=== PATIENT | male | born 1955 | race Caucasian/White ===

== ENCOUNTER 2017-05-06 14:43 | Inpatient (IN) | payer BC ==
[2017-05-06] VITALS (10 sets, daily range): BP systolic 110–156; BP diastolic 36–78
[~2017-05-06] VITALS: Ht 177.8 cm; Wt 101.7 kg
[~2017-05-06 14:43] MED LIST: 0.9 % SODIUM CHLORIDE 10 ML VIAL ONE; calcium chloride 100 MG/1 ML inj IV ONE; dextrose 50%-water 50ml dispensing syringe IV ONE; epiNEPHrine 0.1mg/ml 10ml syringe ONE; etomidate 2mg/ml inj. ONE; furosemide 10 MG/1 ML 10ml inj ONE; sodium bicarbonate (8.4%) 1 mEq/ml syringe ONE
[2017-05-06] MEDS ORDERED: fentaNYL/PF 50MCG/1 ML 2ML syringe ONE (14:50)
[2017-05-06] MEDS ORDERED: LIDOcaine 1%/PF (10mg/ml) 5ml vial ONE ×2 (14:50)
[2017-05-06] MEDS ORDERED: iohexol 350MG/ML 100ml bottle IV ONE ×2 (14:50→15:34)
[2017-05-06] MEDS ORDERED: midazolam 2 mg/2 ml injection ONE (14:50)
[2017-05-06] MEDS ORDERED: hydrALAZINE 20mg/ml inj. IV ONE (14:58)
[2017-05-06] MEDS ORDERED: dextrose 50%-water 50ml dispensing syringe IV ONE (15:00)
[2017-05-06] MEDS ORDERED: sodium polystyrene sulfonate 15gm/60ml oral suspension PO ONE (15:00)
[2017-05-06] MEDS ORDERED: furosemide 40mg/4ml inj IV ONE (15:00)
[2017-05-06] MEDS ORDERED: sodium bicarbonate (0.9mEq/ml) 44.6 mEq/50ml syringe IV ONE (15:00)
[2017-05-06] MEDS ORDERED: insulin regular, human 10 units/0.1 ml syringe IV ONE (15:00)
[2017-05-06] MEDS ORDERED: calcium chloride 100 MG/1 ML inj IV ONE (15:00)
[2017-05-06 15:05] LABS: BASOPHILS # (AUTO) 0.1 X10'3 (0-0.2); BASOPHILS % (AUTO) 0.9 % (0-1); EOSINOPHILS # (AUTO) 0.4 X10'3 (0-0.9); EOSINOPHILS % (AUTO) 3.9 % (0-6); HEMATOCRIT 35.9 % (42.0-52.0); HEMOGLOBIN 12.1 g/dl (14.0-17.9); LYMPHOCYTES # (AUTO) 2.7 X10'3 (1.1-4.8); LYMPHOCYTES % (AUTO) 26.8 % (21-51); MEAN CORPUSCULAR HEMOGLOBIN 31.6 PG (27.0-31.0); MEAN CORPUSCULAR HGB CONC 33.7 % (33.0-36.5); MEAN CORPUSCULAR VOLUME 93.9 FL (78-98); MEAN PLATELET VOLUME 10.8 FL (7.4-10.4); MONOCYTES # (AUTO) 0.8 X10'3 (0-0.9); MONOCYTES % (AUTO) 8.3 % (2-12); NEUTROPHILS % (AUTO) 60.1 % (42-75); PLATELET COUNT 145 X10'3 (140-440); RED BLOOD COUNT 3.82 X10'6 (4.70-6.10); RED CELL DISTRIBUTION WIDTH 14.9 % (11.5-14.5); WHITE BLOOD COUNT 9.9 X10'3 (4.5-11.0)
[2017-05-06 15:16] LABS: LARGE PLATELETS FEW; PLATELET ESTIMATE NORMAL
[2017-05-06 15:22] LABS: ALANINE AMINOTRANSFERASE 94 U/L (12-78); ALBUMIN 2.9 G/DL (3.4-5.0); ALKALINE PHOSPHATASE 90 IU/L (46-116); ANION GAP 13 (8-16); ASPARTATE AMINO TRANSFERASE 83 U/L (10-37); BILIRUBIN,TOTAL 0.3 MG/DL (0.1-1.0); BLOOD UREA NITROGEN 58 MG/DL (7-18); BUN/CREATININE RATIO 21.1 (5.4-32.0); CALCIUM 7.9 MG/DL (8.5-10.1); CHLORIDE 108 MMOL/L (99-107); CREATININE 2.75 MG/DL (0.60-1.10); GLUCOSE 304 MG/DL (70-104); SODIUM 140 MMOL/L (135-145); TOTAL CARBON DIOXIDE 19.1 MMOL/L (24-32); TOTAL PROTEIN 5.8 G/DL (6.4-8.2); eGFR 24 ML/MIN
[2017-05-06 15:23] LABS: POTASSIUM 5.2 MMOL/L (3.5-5.1)
[2017-05-06] MEDS ORDERED: DOPamine 400mg/D5W 250ml 250 ML IV ONE (15:27)
[2017-05-06] MEDS ORDERED: heparin 1,000unit/ml 10ml vial 10 ML ONE (15:41)
[2017-05-06] MEDS ORDERED: tirofiban 5mg in NS 100mL 100 ML IV ONE (15:44)
[2017-05-06] MEDS ORDERED: ticagrelor 90mg tablet ONE (16:16)
[2017-05-06] MEDS ORDERED: tirofiban 5mg in NS 100mL 100 ML IV SCH ×2 (16:30→17:45)
[2017-05-06 16:45] LABS: ABG BASE EXCESS -11.6 mmol/L (-2.0-3.0); ABG HCO3 12.9 mmol/L (22.0-26.0); ABG OXYGEN SATURATION 99.4 % (95-98); ABG PCO2 (T) 26.1 mmHg (35.0-48.0); ABG PH (T) 7.313 (7.350-7.450); ABG PO2 (T) 367.6 mmHg (83-108); FCOHb 0.2 % (0.5-1.5); FO2Hb 99.2 % (94-100); MINUTE VOLUME 11 L/min; PEEP 5 cm H2O; RESPIRATORY RATE 14 b/min; RESPIRATORY RATE (OBSERVED) 16 b/min; TIDAL VOLUME 600 mL; TOTAL HEMOGLOBIN 13.2 G/dl (14.0-18.0)
[2017-05-06] MEDS ORDERED: insulin Lispro (HumaLOG) vial - multi-dose SQ SCH (17:00)
[2017-05-06] MEDS ORDERED: dextrose ORAL solution 15 GM/59 ML bottle PO PRN ×2 (17:00)
[2017-05-06] MEDS ORDERED: ondansetron/PF 4mg/2ml inj IV PRN (17:00)
[2017-05-06] MEDS ORDERED: dextrose 50%-water 50ml dispensing syringe IV PRN ×2 (17:00)
[2017-05-06] MEDS ORDERED: MESSAGE TO PHARMACY PO ONE (17:00)
[2017-05-06] MEDS ORDERED: glucagon, human recombinant 1mg kit SUBCUT PRN (17:00)
[2017-05-06] MEDS ORDERED: fentaNYL/PF 50MCG/1 ML 2ML syringe IV PRN (17:00)
[2017-05-06] MEDS ORDERED: acetaminophen 325mg tablet PO PRN ×2 (17:00)
[2017-05-06] MEDS ORDERED: morphine 5 MG/ML injection IV PRN ×2 (17:00)
[2017-05-06] MEDS ORDERED: magnesium hydroxide 30ml (MOM) UD suspension PO PRN (17:00)
[2017-05-06] MEDS ORDERED: DOPamine 400mg/D5W 250ml 250 ML IV PRN (17:05)
[2017-05-06] MEDS ORDERED: HYDR-4069 PO (17:08)
[2017-05-06] MEDS ORDERED: ASPI-1094 PO (17:08)
[2017-05-06] MEDS ORDERED: FURO80TA3 PO (17:08)
[2017-05-06] MEDS ORDERED: CHOL4PAC4 PO (17:08)
[2017-05-06] MEDS ORDERED: DICY10CA88 PO (17:08)
[2017-05-06] MEDS ORDERED: FOLI1TAB34 PO (17:08)
[2017-05-06] MEDS ORDERED: CARV25TA PO (17:08)
[2017-05-06] MEDS ORDERED: GABA-532 PO (17:08)
[2017-05-06] MEDS ORDERED: aspirin 81mg tab.chew PO ONE (17:10)
[2017-05-06] MEDS ORDERED: ticagrelor 90mg tablet PO ONE (17:10)
[2017-05-06] MEDS: pantoprazole 40 MG vial IV SCH (18:12)
[2017-05-06] MEDS ORDERED: mineral oil/petrolatum ophthal oint EACHEYE SCH (18:24)
[2017-05-06] MEDS: mineral oil/petrolatum ophthal oint EACHEYE SCH ×2 (18:24→21:15)
[2017-05-06] MEDS: midazolam 100mg in NS 100ml 100 ML IV PRN (19:22)
[2017-05-06 19:25] LABS: ABG BASE EXCESS -12.6 mmol/L (-2.0-3.0); ABG HCO3 14.4 mmol/L (22.0-26.0); ABG OXYGEN SATURATION 93.6 % (95-98); ABG PCO2 (T) 31.7 mmHg (35.0-48.0); ABG PH (T) 7.256 (7.350-7.450); ABG PO2 (T) 60.6 mmHg (83-108); FCOHb 0.1 % (0.5-1.5); FO2Hb 93.5 % (94-100); MINUTE VOLUME 7 L/min; PATIENT TEMPERATURE 33.3; PEEP 5 cm H2O; RESPIRATORY RATE 14 b/min; RESPIRATORY RATE (OBSERVED) 14 b/min; TIDAL VOLUME 400 mL; TOTAL HEMOGLOBIN 12.9 G/dl (14.0-18.0)
[2017-05-06 19:30] LABS: OXYGEN SATURATION (MIXED VEN) 86.5 % (60-80); PO2 MIXED VENOUS (TEMP COR) 42.8 mmHg (35-46)
[2017-05-06 19:42] LABS: BASOPHILS % (AUTO) 0.1 % (0-1); EOSINOPHILS # (AUTO) 0.2 X10'3 (0-0.9); EOSINOPHILS % (AUTO) 1.1 % (0-6); HEMATOCRIT 36.4 % (42.0-52.0); HEMOGLOBIN 12.3 g/dl (14.0-17.9); LYMPHOCYTES # (AUTO) 0.5 X10'3 (1.1-4.8); LYMPHOCYTES % (AUTO) 3.3 % (21-51); MEAN CORPUSCULAR HEMOGLOBIN 31.8 PG (27.0-31.0); MEAN CORPUSCULAR HGB CONC 33.7 % (33.0-36.5); MEAN CORPUSCULAR VOLUME 94.4 FL (78-98); MEAN PLATELET VOLUME 10.4 FL (7.4-10.4); MONOCYTES # (AUTO) 1.9 X10'3 (0-0.9); MONOCYTES % (AUTO) 11.7 % (2-12); NEUTROPHILS # (AUTO) 13.9 X10'3 (1.8-7.7); NEUTROPHILS % (AUTO) 83.8 % (42-75); PLATELET COUNT 162 X10'3 (140-440); RED BLOOD COUNT 3.86 X10'6 (4.70-6.10); RED CELL DISTRIBUTION WIDTH 14.7 % (11.5-14.5); WHITE BLOOD COUNT 16.6 X10'3 (4.5-11.0)
[2017-05-06 19:53] LABS: HEMOGLOBIN A1C 6.9 % (4.5-6.2)
[2017-05-06] MEDS: normal saline 1000ml 1,000 ML IV SCH (20:05)
[2017-05-06 20:08] LABS: INR 1.2 INR; PROTHROMBIN TIME 12.3 SECONDS (9.0-12.0)
[2017-05-06 20:18] LABS: ALANINE AMINOTRANSFERASE 212 U/L (12-78); ALBUMIN 3.1 G/DL (3.4-5.0); ALBUMIN/GLOBULIN RATIO 1.1 (1.1-1.5); ALKALINE PHOSPHATASE 94 IU/L (46-116); ANION GAP 14 (8-16); ASPARTATE AMINO TRANSFERASE 243 U/L (10-37); BILIRUBIN,TOTAL 0.4 MG/DL (0.1-1.0); BLOOD UREA NITROGEN 61 MG/DL (7-18); BUN/CREATININE RATIO 23.4 (5.4-32.0); CALCIUM 7.8 MG/DL (8.5-10.1); CHLORIDE 110 MMOL/L (99-107); CREATININE 2.61 MG/DL (0.60-1.10); GLUCOSE 294 MG/DL (70-104); PHOSPHORUS 2.5 MG/DL (2.3-4.5); POTASSIUM 4.9 MMOL/L (3.5-5.1); SODIUM 141 MMOL/L (135-145); TOTAL CARBON DIOXIDE 17.4 MMOL/L (24-32); TOTAL PROTEIN 5.8 G/DL (6.4-8.2); eGFR 25 ML/MIN
[2017-05-06] MEDS: insulin regular, human 100 UNITS in normal saline 100ml IV soln 99 ML IV SCH ×8 (20:23→23:59)
[2017-05-06] MEDS: atorvastatin 20mg tablet PO SCH (20:34)
[2017-05-06] MEDS: insulin glargine (Lantus) pen - multi-dose SQ SCH (21:00)
[2017-05-07] VITALS (25 sets, daily range): BP systolic 115–157; BP diastolic 58–84
[2017-05-07] MEDS: insulin regular, human 100 UNITS in normal saline 100ml IV soln 99 ML IV SCH ×14 (01:04→21:03)
[2017-05-07] MEDS: mineral oil/petrolatum ophthal oint EACHEYE SCH ×4 (01:59→19:56)
[2017-05-07 02:06] LABS: PO2 MIXED VENOUS (TEMP COR) 38.3 mmHg (35-46)
[2017-05-07] MEDS ORDERED: sodium bicarbonate (8.4%) 1 mEq/ml syringe IV ONE (02:15)
[2017-05-07] MEDS: DOPamine 400mg/D5W 250ml 250 ML IV SCH ×2 (02:56→20:14)
[2017-05-07 03:01] LABS: BASOPHILS % (AUTO) 0 % (0-1); EOSINOPHILS % (AUTO) 0 % (0-6); HEMATOCRIT 38.5 % (42.0-52.0); HEMOGLOBIN 13.3 g/dl (14.0-17.9); LYMPHOCYTES # (AUTO) 0.4 X10'3 (1.1-4.8); LYMPHOCYTES % (AUTO) 2.6 % (21-51); MEAN CORPUSCULAR HEMOGLOBIN 31.9 PG (27.0-31.0); MEAN CORPUSCULAR HGB CONC 34.6 % (33.0-36.5); MEAN CORPUSCULAR VOLUME 92.1 FL (78-98); MONOCYTES # (AUTO) 0.9 X10'3 (0-0.9); NEUTROPHILS # (AUTO) 13.2 X10'3 (1.8-7.7); NEUTROPHILS % (AUTO) 91.4 % (42-75); PLATELET COUNT 145 X10'3 (140-440); RED BLOOD COUNT 4.18 X10'6 (4.70-6.10); WHITE BLOOD COUNT 14.4 X10'3 (4.5-11.0)
[2017-05-07 03:16] LABS: INR 1.1 INR; PROTHROMBIN TIME 11.6 SECONDS (9.0-12.0)
[2017-05-07 03:19] LABS: CREATINE KINASE 620 U/L (39-308)
[2017-05-07 04:07] LABS: ALBUMIN 3.4 G/DL (3.4-5.0); ANION GAP 17 (8-16); BLOOD UREA NITROGEN 62 MG/DL (7-18); BUN/CREATININE RATIO 22.3 (5.4-32.0); CALCIUM 8.3 MG/DL (8.5-10.1); CHLORIDE 111 MMOL/L (99-107); CREATININE 2.78 MG/DL (0.60-1.10); GLUCOSE 221 MG/DL (70-104); MAGNESIUM 1.5 MG/DL (1.5-2.4); POTASSIUM 4.1 MMOL/L (3.5-5.1); SODIUM 143 MMOL/L (135-145); TOTAL CARBON DIOXIDE 15.4 MMOL/L (24-32); eGFR 23 ML/MIN
[2017-05-07 04:12] LABS: CREATINE KINASE 620 U/L (39-308)
[2017-05-07 07:55] LABS: ANION GAP 13 (8-16); BLOOD UREA NITROGEN 61 MG/DL (7-18); BUN/CREATININE RATIO 23.4 (5.4-32.0); CALCIUM 8.3 MG/DL (8.5-10.1); CHLORIDE 112 MMOL/L (99-107); CREATININE 2.61 MG/DL (0.60-1.10); GLUCOSE 131 MG/DL (70-104); MAGNESIUM 1.6 MG/DL (1.5-2.4); POTASSIUM 3.9 MMOL/L (3.5-5.1); SODIUM 143 MMOL/L (135-145); TOTAL CARBON DIOXIDE 18.5 MMOL/L (24-32); eGFR 25 ML/MIN
[2017-05-07 08:00] LABS: OXYGEN SATURATION (MIXED VEN) 87.6 % (60-80); PO2 MIXED VENOUS (TEMP COR) 51.3 mmHg (35-46)
[2017-05-07 08:00] LABS: ABG HCO3 15.4 mmol/L (22.0-26.0); ABG OXYGEN SATURATION 96.9 % (95-98); ABG PCO2 (T) 36.2 mmHg (35.0-48.0); ABG PH (T) 7.247 (7.350-7.450); FCOHb 0.3 % (0.5-1.5); FMetHb 0.3 % (0.3-1.12); FO2Hb 96.3 % (94-100); PEEP 5 cm H2O; RESPIRATORY RATE 14 b/min; TIDAL VOLUME 400 mL; TOTAL HEMOGLOBIN 13.2 G/dl (14.0-18.0)
[2017-05-07] MEDS: ticagrelor 90mg tablet PO SCH ×2 (08:24→19:56)
[2017-05-07] MEDS: aspirin 81mg tab.chew PO SCH (08:24)
[2017-05-07] MEDS: pantoprazole 40 MG vial IV SCH (08:24)
[2017-05-07] MEDS: normal saline 1000ml 1,000 ML IV SCH ×2 (08:24→19:56)
[2017-05-07 08:47] LABS: CHOL/HDL RATIO 5.1 (0.00-4.99); CHOLESTEROL 137 MG/DL (0-200); HDL CHOLESTEROL 27 MG/DL (35-60); LDL CHOLESTEROL 73 MG/DL (50-100); TRIGLYCERIDES 200 MG/DL (20-135)
[2017-05-07 13:46] LABS: ABG HCO3 13.9 mmol/L (22.0-26.0); ABG OXYGEN SATURATION 96.4 % (95-98); ABG PCO2 (T) 32.2 mmHg (35.0-48.0); ABG PH (T) 7.254 (7.350-7.450); ABG PO2 (T) 84.9 mmHg (83-108); FCOHb 0.4 % (0.5-1.5); FMetHb 0.3 % (0.3-1.12); FO2Hb 95.7 % (94-100); PEEP 5 cm H2O; RESPIRATORY RATE 14 b/min; TIDAL VOLUME 400 mL; TOTAL HEMOGLOBIN 13.6 G/dl (14.0-18.0)
[2017-05-07 13:49] LABS: ALBUMIN 3.1 G/DL (3.4-5.0); ANION GAP 13 (8-16); BLOOD UREA NITROGEN 64 MG/DL (7-18); BUN/CREATININE RATIO 24.2 (5.4-32.0); CALCIUM 8.4 MG/DL (8.5-10.1); CHLORIDE 112 MMOL/L (99-107); CREATINE KINASE 588 U/L (39-308); CREATININE 2.64 MG/DL (0.60-1.10); GLUCOSE 154 MG/DL (70-104); MAGNESIUM 1.5 MG/DL (1.5-2.4); POTASSIUM 4.2 MMOL/L (3.5-5.1); SODIUM 143 MMOL/L (135-145); TOTAL CARBON DIOXIDE 17.7 MMOL/L (24-32); eGFR 25 ML/MIN
[2017-05-07] MEDS: midazolam 100mg in NS 100ml 100 ML IV PRN (16:33)
[2017-05-07] MEDS: atorvastatin 20mg tablet PO SCH (17:44)
[2017-05-07 19:36] LABS: ABG BASE EXCESS -11.6 mmol/L (-2.0-3.0); ABG HCO3 13.7 mmol/L (22.0-26.0); ABG OXYGEN SATURATION 97.3 % (95-98); ABG PCO2 (T) 25.6 mmHg (35.0-48.0); ABG PH (T) 7.329 (7.350-7.450); ALLEN'S TEST Positive; FCOHb 0.4 % (0.5-1.5); FMetHb 0.3 % (0.3-1.12); FO2Hb 96.6 % (94-100); MINUTE VOLUME 11 L/min; PATIENT TEMPERATURE 33.7; PEEP 5 cm H2O; RESPIRATORY RATE 14 b/min; RESPIRATORY RATE (OBSERVED) 24 b/min; TIDAL VOLUME 400 mL; TOTAL HEMOGLOBIN 13.8 G/dl (14.0-18.0)
[2017-05-07 19:41] LABS: OXYGEN SATURATION (MIXED VEN) 86.5 % (60-80); PO2 MIXED VENOUS (TEMP COR) 38.8 mmHg (35-46)
[2017-05-07 20:59] LABS: ANION GAP 15 (8-16); BLOOD UREA NITROGEN 62 MG/DL (7-18); BUN/CREATININE RATIO 23.8 (5.4-32.0); CALCIUM 8.5 MG/DL (8.5-10.1); CHLORIDE 111 MMOL/L (99-107); CREATINE KINASE 480 U/L (39-308); GLUCOSE 144 MG/DL (70-104); MAGNESIUM 1.5 MG/DL (1.5-2.4); POTASSIUM 4.8 MMOL/L (3.5-5.1); SODIUM 143 MMOL/L (135-145); TOTAL CARBON DIOXIDE 16.6 MMOL/L (24-32); eGFR 25 ML/MIN
[2017-05-07] MEDS: insulin glargine (Lantus) pen - multi-dose SQ SCH (21:00)
[2017-05-08] VITALS (23 sets, daily range): BP systolic 105–148; BP diastolic 55–81
[2017-05-08] MEDS: insulin regular, human 100 UNITS in normal saline 100ml IV soln 99 ML IV SCH ×2 (00:10)
[2017-05-08 01:25] LABS: ABG BASE EXCESS -9.7 mmol/L (-2.0-3.0); ABG HCO3 14.7 mmol/L (22.0-26.0); ABG OXYGEN SATURATION 96.5 % (95-98); ABG PCO2 (T) 25.6 mmHg (35.0-48.0); ABG PH (T) 7.367 (7.350-7.450); ABG PO2 (T) 73.7 mmHg (83-108); FCOHb 0.1 % (0.5-1.5); FMetHb 0.3 % (0.3-1.12); FO2Hb 96.1 % (94-100); MINUTE VOLUME 11 L/min; PATIENT TEMPERATURE 34.7; PEEP 5 cm H2O; RESPIRATORY RATE 14 b/min; RESPIRATORY RATE (OBSERVED) 25 b/min; TIDAL VOLUME 400 mL; TOTAL HEMOGLOBIN 12.6 G/dl (14.0-18.0)
[2017-05-08 01:26] LABS: ALBUMIN 2.9 G/DL (3.4-5.0); ANION GAP 13 (8-16); BLOOD UREA NITROGEN 63 MG/DL (7-18); BUN/CREATININE RATIO 23.7 (5.4-32.0); CALCIUM 8.4 MG/DL (8.5-10.1); CHLORIDE 113 MMOL/L (99-107); CREATININE 2.66 MG/DL (0.60-1.10); GLUCOSE 96 MG/DL (70-104); MAGNESIUM 1.5 MG/DL (1.5-2.4); POTASSIUM 4.1 MMOL/L (3.5-5.1); SODIUM 144 MMOL/L (135-145); TOTAL CARBON DIOXIDE 17.8 MMOL/L (24-32); eGFR 25 ML/MIN
[2017-05-08 01:30] LABS: OXYGEN SATURATION (MIXED VEN) 86.8 % (60-80); PO2 MIXED VENOUS (TEMP COR) 41.1 mmHg (35-46)
[2017-05-08] MEDS: mineral oil/petrolatum ophthal oint EACHEYE SCH ×4 (01:48→20:43)
[2017-05-08 04:04] LABS: BASOPHILS % (AUTO) 0 % (0-1); EOSINOPHILS # (AUTO) 0.2 X10'3 (0-0.9); EOSINOPHILS % (AUTO) 0.9 % (0-6); HEMATOCRIT 36.9 % (42.0-52.0); HEMOGLOBIN 12.4 g/dl (14.0-17.9); LYMPHOCYTES # (AUTO) 0.4 X10'3 (1.1-4.8); MEAN CORPUSCULAR HEMOGLOBIN 31.9 PG (27.0-31.0); MEAN CORPUSCULAR HGB CONC 33.6 % (33.0-36.5); MEAN CORPUSCULAR VOLUME 94.8 FL (78-98); MEAN PLATELET VOLUME 11.1 FL (7.4-10.4); MONOCYTES # (AUTO) 1.2 X10'3 (0-0.9); MONOCYTES % (AUTO) 6.5 % (2-12); NEUTROPHILS # (AUTO) 17.4 X10'3 (1.8-7.7); NEUTROPHILS % (AUTO) 90.6 % (42-75); PLATELET COUNT 152 X10'3 (140-440); RED BLOOD COUNT 3.89 X10'6 (4.70-6.10); RED CELL DISTRIBUTION WIDTH 15.3 % (11.5-14.5); WHITE BLOOD COUNT 19.2 X10'3 (4.5-11.0)
[2017-05-08 04:15] LABS: INR 1.1 INR; PROTHROMBIN TIME 11.5 SECONDS (9.0-12.0)
[2017-05-08 04:16] LABS: ANION GAP 16 (8-16); BLOOD UREA NITROGEN 61 MG/DL (7-18); BUN/CREATININE RATIO 22.5 (5.4-32.0); CALCIUM 8.3 MG/DL (8.5-10.1); CHLORIDE 112 MMOL/L (99-107); CREATININE 2.71 MG/DL (0.60-1.10); GLUCOSE 103 MG/DL (70-104); MAGNESIUM 1.5 MG/DL (1.5-2.4); POTASSIUM 4.4 MMOL/L (3.5-5.1); SODIUM 145 MMOL/L (135-145); eGFR 24 ML/MIN
[2017-05-08 04:25] LABS: LARGE PLATELETS FEW; PLATELET ESTIMATE NORMAL
[2017-05-08 05:41] LABS: ABG BASE EXCESS -16.4 mmol/L (-2.0-3.0); ABG HCO3 11.1 mmol/L (22.0-26.0); ABG OXYGEN SATURATION 94.4 % (95-98); ABG PCO2 (T) 25.3 mmHg (35.0-48.0); ABG PO2 (T) 57.7 mmHg (83-108); FO2Hb 94.4 % (94-100); MINUTE VOLUME 6 L/min; PATIENT TEMPERATURE 31.7; PEEP 5 cm H2O; RESPIRATORY RATE 14 b/min; RESPIRATORY RATE (OBSERVED) 14 b/min; TIDAL VOLUME 400 mL; TOTAL HEMOGLOBIN 13.1 G/dl (14.0-18.0)
[2017-05-08] MEDS: pantoprazole 40 MG vial IV SCH (08:27)
[2017-05-08] MEDS: ticagrelor 90mg tablet PO SCH ×2 (08:27→20:43)
[2017-05-08] MEDS: aspirin 81mg tab.chew PO SCH (08:27)
[2017-05-08] MEDS: normal saline 1000ml 1,000 ML IV SCH (10:55)
[2017-05-08] MEDS ORDERED: rocuronium 10mg/ml inj IV ONE (12:05)
[2017-05-08 15:10] LABS: ALLEN'S TEST Positive
[2017-05-08] MEDS: atorvastatin 20mg tablet PO SCH (17:47)
[2017-05-08] MEDS: insulin glargine (Lantus) pen - multi-dose SQ SCH (21:00)
[2017-05-09] VITALS (23 sets, daily range): BP systolic 98–186; BP diastolic 45–99
[2017-05-09] MEDS: normal saline 1000ml 1,000 ML IV SCH ×2 (01:16→14:31)
[2017-05-09] MEDS: mineral oil/petrolatum ophthal oint EACHEYE SCH ×4 (01:17→21:01)
[2017-05-09 03:37] LABS: BASOPHILS % (AUTO) 0 % (0-1); EOSINOPHILS % (AUTO) 0 % (0-6); HEMATOCRIT 30.8 % (42.0-52.0); HEMOGLOBIN 10.5 g/dl (14.0-17.9); LYMPHOCYTES # (AUTO) 0.3 X10'3 (1.1-4.8); LYMPHOCYTES % (AUTO) 1.4 % (21-51); MEAN CORPUSCULAR HEMOGLOBIN 31.5 PG (27.0-31.0); MEAN CORPUSCULAR HGB CONC 34.1 % (33.0-36.5); MEAN CORPUSCULAR VOLUME 92.5 FL (78-98); MEAN PLATELET VOLUME 11.1 FL (7.4-10.4); MONOCYTES # (AUTO) 1.2 X10'3 (0-0.9); MONOCYTES % (AUTO) 6.8 % (2-12); NEUTROPHILS # (AUTO) 16.6 X10'3 (1.8-7.7); NEUTROPHILS % (AUTO) 91.8 % (42-75); PLATELET COUNT 136 X10'3 (140-440); RED BLOOD COUNT 3.33 X10'6 (4.70-6.10); RED CELL DISTRIBUTION WIDTH 15.4 % (11.5-14.5)
[2017-05-09 03:47] LABS: ALBUMIN 2.7 G/DL (3.4-5.0); ANION GAP 14 (8-16); BLOOD UREA NITROGEN 72 MG/DL (7-18); BUN/CREATININE RATIO 23.1 (5.4-32.0); CALCIUM 8.1 MG/DL (8.5-10.1); CHLORIDE 116 MMOL/L (99-107); CREATININE 3.12 MG/DL (0.60-1.10); GLUCOSE 190 MG/DL (70-104); MAGNESIUM 1.7 MG/DL (1.5-2.4); POTASSIUM 4.1 MMOL/L (3.5-5.1); SODIUM 147 MMOL/L (135-145); TOTAL CARBON DIOXIDE 17.2 MMOL/L (24-32); eGFR 20 ML/MIN
[2017-05-09 03:48] LABS: INR 1.1 INR; PROTHROMBIN TIME 11.4 SECONDS (9.0-12.0)
[2017-05-09 03:51] LABS: ABG BASE EXCESS -9.2 mmol/L (-2.0-3.0); ABG HCO3 14.4 mmol/L (22.0-26.0); ABG OXYGEN SATURATION 97.1 % (95-98); ABG PCO2 (T) 24.3 mmHg (35.0-48.0); ABG PH (T) 7.388 (7.350-7.450); ABG PO2 (T) 92.8 mmHg (83-108); FCOHb 0.3 % (0.5-1.5); FMetHb 0.3 % (0.3-1.12); FO2Hb 96.5 % (94-100); MINUTE VOLUME 12 L/min; PATIENT TEMPERATURE 36.3; PEEP 5 cm H2O; RESPIRATORY RATE 14 b/min; RESPIRATORY RATE (OBSERVED) 26 b/min; TIDAL VOLUME 400 mL
[2017-05-09 04:20] LABS: LARGE PLATELETS FEW; PLATELET ESTIMATE DECREASED
[2017-05-09] MEDS: aspirin 81mg tab.chew PO SCH (08:04)
[2017-05-09] MEDS: ticagrelor 90mg tablet PO SCH ×2 (08:04→21:02)
[2017-05-09] MEDS: pantoprazole 40 MG vial IV SCH (08:04)
[2017-05-09] MEDS ORDERED: dextrose ORAL solution 15 GM/59 ML bottle PO PRN ×2 (14:40)
[2017-05-09] MEDS ORDERED: dextrose 50%-water 50ml dispensing syringe IV PRN ×2 (14:40)
[2017-05-09] MEDS ORDERED: MESSAGE TO PHARMACY PO ONE (14:40)
[2017-05-09] MEDS ORDERED: glucagon, human recombinant 1mg kit SUBCUT PRN (14:40)
[2017-05-09] MEDS: insulin glargine (Lantus) pen - multi-dose SQ SCH (21:10)
[2017-05-09] MEDS: insulin Lispro (HumaLOG) vial - multi-dose SQ SCH (21:14)
[2017-05-10] VITALS (24 sets, daily range): BP systolic 126–183; BP diastolic 53–101
[2017-05-10] MEDS: normal saline 1000ml 1,000 ML IV SCH ×3 (01:00→23:02)
[2017-05-10] MEDS: mineral oil/petrolatum ophthal oint EACHEYE SCH ×4 (01:43→19:27)
[2017-05-10] MEDS: insulin Lispro (HumaLOG) vial - multi-dose SQ SCH ×2 (01:56→07:52)
[2017-05-10 04:11] LABS: ABG BASE EXCESS -7.8 mmol/L (-2.0-3.0); ABG HCO3 15.4 mmol/L (22.0-26.0); ABG OXYGEN SATURATION 97.3 % (95-98); ABG PCO2 (T) 25.2 mmHg (35.0-48.0); ABG PH (T) 7.404 (7.350-7.450); ABG PO2 (T) 98.1 mmHg (83-108); ALLEN'S TEST Positive; FCOHb 0.3 % (0.5-1.5); FMetHb 0.3 % (0.3-1.12); FO2Hb 96.7 % (94-100); MINUTE VOLUME 13 L/min; PATIENT TEMPERATURE 36.9; PEEP 5 cm H2O; RESPIRATORY RATE 16 b/min; RESPIRATORY RATE (OBSERVED) 28 b/min; TIDAL VOLUME 400 mL; TOTAL HEMOGLOBIN 11.6 G/dl (14.0-18.0)
[2017-05-10] MEDS ORDERED: hydrALAZINE 20mg/ml inj. IV ONE (04:35)
[2017-05-10 05:37] LABS: BASOPHILS % (AUTO) 0 % (0-1); EOSINOPHILS # (AUTO) 0.2 X10'3 (0-0.9); EOSINOPHILS % (AUTO) 0.8 % (0-6); HEMATOCRIT 30.1 % (42.0-52.0); HEMOGLOBIN 10.4 g/dl (14.0-17.9); LYMPHOCYTES # (AUTO) 0.2 X10'3 (1.1-4.8); LYMPHOCYTES % (AUTO) 1.2 % (21-51); MEAN CORPUSCULAR HEMOGLOBIN 32.2 PG (27.0-31.0); MEAN CORPUSCULAR HGB CONC 34.6 % (33.0-36.5); MEAN PLATELET VOLUME 11.2 FL (7.4-10.4); MONOCYTES # (AUTO) 1.6 X10'3 (0-0.9); MONOCYTES % (AUTO) 8.3 % (2-12); NEUTROPHILS % (AUTO) 89.7 % (42-75); PLATELET COUNT 138 X10'3 (140-440); RED BLOOD COUNT 3.24 X10'6 (4.70-6.10); RED CELL DISTRIBUTION WIDTH 15.4 % (11.5-14.5); WHITE BLOOD COUNT 18.9 X10'3 (4.5-11.0)
[2017-05-10 05:46] LABS: ALBUMIN 2.8 G/DL (3.4-5.0); ANION GAP 15 (8-16); BLOOD UREA NITROGEN 77 MG/DL (7-18); BUN/CREATININE RATIO 25.2 (5.4-32.0); CALCIUM 8.5 MG/DL (8.5-10.1); CHLORIDE 119 MMOL/L (99-107); CREATININE 3.06 MG/DL (0.60-1.10); GLUCOSE 185 MG/DL (70-104); POTASSIUM 3.9 MMOL/L (3.5-5.1); SODIUM 152 MMOL/L (135-145); TOTAL CARBON DIOXIDE 18.4 MMOL/L (24-32); eGFR 21 ML/MIN
[2017-05-10 05:59] LABS: INR 1.1 INR; PROTHROMBIN TIME 11.4 SECONDS (9.0-12.0)
[2017-05-10] MEDS: ticagrelor 90mg tablet PO SCH ×2 (07:40→19:26)
[2017-05-10] MEDS: aspirin 81mg tab.chew PO SCH (07:40)
[2017-05-10] MEDS: pantoprazole 40 MG vial IV SCH (07:41)
[2017-05-10] MEDS: atorvastatin 20mg tablet PO SCH ×2 (07:41→19:26)
[2017-05-10] MEDS ORDERED: VECuronium br 10mg inj. IV ONE (13:50)
[2017-05-10] MEDS: midazolam 100mg in NS 100ml 100 ML IV PRN (19:28)
[2017-05-10] MEDS: insulin glargine (Lantus) pen - multi-dose SQ SCH (21:54)
[2017-05-10] MEDS ORDERED: morphine 4 MG/ML inj SYRINge ONE (23:24)
[2017-05-11] VITALS (16 sets, daily range): BP systolic 93–191; BP diastolic 61–101
[2017-05-11] MEDS: mineral oil/petrolatum ophthal oint EACHEYE SCH ×3 (02:04→13:37)
[2017-05-11 02:13] LABS: BASOPHILS % (AUTO) 0 % (0-1); EOSINOPHILS # (AUTO) 0.3 X10'3 (0-0.9); EOSINOPHILS % (AUTO) 1.3 % (0-6); HEMATOCRIT 30.2 % (42.0-52.0); HEMOGLOBIN 10.1 g/dl (14.0-17.9); LYMPHOCYTES # (AUTO) 0.4 X10'3 (1.1-4.8); MEAN CORPUSCULAR HEMOGLOBIN 31.5 PG (27.0-31.0); MEAN CORPUSCULAR HGB CONC 33.5 % (33.0-36.5); MEAN CORPUSCULAR VOLUME 93.9 FL (78-98); MEAN PLATELET VOLUME 10.7 FL (7.4-10.4); MONOCYTES # (AUTO) 1.9 X10'3 (0-0.9); MONOCYTES % (AUTO) 10.1 % (2-12); NEUTROPHILS # (AUTO) 16.7 X10'3 (1.8-7.7); NEUTROPHILS % (AUTO) 86.6 % (42-75); PLATELET COUNT 151 X10'3 (140-440); RED BLOOD COUNT 3.22 X10'6 (4.70-6.10); RED CELL DISTRIBUTION WIDTH 15.8 % (11.5-14.5); WHITE BLOOD COUNT 19.3 X10'3 (4.5-11.0)
[2017-05-11 02:20] LABS: INR 1.1 INR; PROTHROMBIN TIME 11.7 SECONDS (9.0-12.0)
[2017-05-11 02:26] LABS: ALBUMIN 2.7 G/DL (3.4-5.0); ANION GAP 15 (8-16); BLOOD UREA NITROGEN 80 MG/DL (7-18); BUN/CREATININE RATIO 23.2 (5.4-32.0); CALCIUM 8.5 MG/DL (8.5-10.1); CHLORIDE 123 MMOL/L (99-107); CREATININE 3.45 MG/DL (0.60-1.10); GLUCOSE 200 MG/DL (70-104); MAGNESIUM 2.1 MG/DL (1.5-2.4); POTASSIUM 4.4 MMOL/L (3.5-5.1); PREALBUMIN 16.4 MG/DL (19-36); TOTAL CARBON DIOXIDE 19.3 MMOL/L (24-32); eGFR 18 ML/MIN
[2017-05-11 02:28] LABS: SODIUM 157 MMOL/L (135-145)
[2017-05-11 02:55] LABS: LARGE PLATELETS FEW; PLATELET ESTIMATE NORMAL
[2017-05-11 03:25] LABS: ABG BASE EXCESS -10.3 mmol/L (-2.0-3.0); ABG HCO3 15.6 mmol/L (22.0-26.0); ABG OXYGEN SATURATION 95.9 % (95-98); ABG PCO2 (T) 35.1 mmHg (35.0-48.0); ABG PH (T) 7.268 (7.350-7.450); ABG PO2 (T) 91.8 mmHg (83-108); ALLEN'S TEST Positive; FCOHb 0.3 % (0.5-1.5); FMetHb 0.1 % (0.3-1.12); FO2Hb 95.5 % (94-100); MINUTE VOLUME 8 L/min; PATIENT TEMPERATURE 37.3; PEEP 5 cm H2O; RESPIRATORY RATE 16 b/min; RESPIRATORY RATE (OBSERVED) 20 b/min; TIDAL VOLUME 509 mL; TOTAL HEMOGLOBIN 12.3 G/dl (14.0-18.0)
[2017-05-11] MEDS ORDERED: sodium chloride 0.45% 1,000 ML IV SCH (03:47)
[2017-05-11] MEDS: pantoprazole 40 MG vial IV SCH (07:50)
[2017-05-11] MEDS: aspirin 81mg tab.chew PO SCH (07:50)
[2017-05-11] MEDS: ticagrelor 90mg tablet PO SCH (07:50)
[2017-05-11] MEDS: insulin Lispro (HumaLOG) vial - multi-dose SQ SCH (07:53)
[2017-05-11] MEDS ORDERED: morphine 4 MG/ML inj SYRINge IV PRN ×3 (09:32→15:40)
[2017-05-11 12:15] LABS: ABG BASE EXCESS -7.6 mmol/L (-2.0-3.0); ABG OXYGEN SATURATION 98.6 % (95-98); ABG PCO2 (T) 22.6 mmHg (35.0-48.0); ABG PO2 (T) 155.9 mmHg (83-108); ALLEN'S TEST Positive; FCOHb 0.3 % (0.5-1.5); FMetHb 0.3 % (0.3-1.12); MINUTE VOLUME 12 L/min; PEEP 5 cm H2O; RESPIRATORY RATE 16 b/min; RESPIRATORY RATE (OBSERVED) 18 b/min; TOTAL HEMOGLOBIN 10.4 G/dl (14.0-18.0)
[2017-05-11 12:41] LABS: ABG BASE EXCESS -8.6 mmol/L (-2.0-3.0); ABG HCO3 16.1 mmol/L (22.0-26.0); ABG OXYGEN SATURATION 97.9 % (95-98); ABG PCO2 (T) 30.7 mmHg (35.0-48.0); ABG PH (T) 7.337 (7.350-7.450); ABG PO2 (T) 129.4 mmHg (83-108); ALLEN'S TEST Positive; FCOHb 0.3 % (0.5-1.5); FMetHb 0.1 % (0.3-1.12); FO2Hb 97.5 % (94-100); MINUTE VOLUME 7 L/min; PEEP 5 cm H2O; RESPIRATORY RATE 10 b/min; RESPIRATORY RATE (OBSERVED) 12 b/min; TOTAL HEMOGLOBIN 10.9 G/dl (14.0-18.0)
[2017-05-11 13:05] LABS: ABG BASE EXCESS -10.1 mmol/L (-2.0-3.0); ABG HCO3 15.6 mmol/L (22.0-26.0); ABG OXYGEN SATURATION 97.3 % (95-98); ABG PCO2 (T) 33.5 mmHg (35.0-48.0); ABG PH (T) 7.285 (7.350-7.450); ABG PO2 (T) 114.8 mmHg (83-108); ALLEN'S TEST Positive; FCOHb 0.3 % (0.5-1.5); MINUTE VOLUME 8 L/min; PEEP 5 cm H2O; RESPIRATORY RATE 10 b/min; RESPIRATORY RATE (OBSERVED) 18 b/min; TOTAL HEMOGLOBIN 11.4 G/dl (14.0-18.0)
[2017-05-11 13:45] LABS: ABG BASE EXCESS -9.7 mmol/L (-2.0-3.0); ABG HCO3 16.3 mmol/L (22.0-26.0); ABG OXYGEN SATURATION 97.1 % (95-98); ABG PCO2 (T) 35.9 mmHg (35.0-48.0); ABG PH (T) 7.274 (7.350-7.450); ABG PO2 (T) 111.5 mmHg (83-108); ALLEN'S TEST Positive; FCOHb 0.3 % (0.5-1.5); FMetHb 0.1 % (0.3-1.12); FO2Hb 96.7 % (94-100); MINUTE VOLUME 7 L/min; PEEP 5 cm H2O; RESPIRATORY RATE 10 b/min; RESPIRATORY RATE (OBSERVED) 16 b/min; TIDAL VOLUME 400 mL; TOTAL HEMOGLOBIN 11.2 G/dl (14.0-18.0)
[2017-05-11 14:21] LABS: ABG BASE EXCESS -9.9 mmol/L (-2.0-3.0); ABG HCO3 16.8 mmol/L (22.0-26.0); ABG OXYGEN SATURATION 98.9 % (95-98); ABG PCO2 (T) 39.7 mmHg (35.0-48.0); ABG PH (T) 7.244 (7.350-7.450); ABG PO2 (T) 265.8 mmHg (83-108); ALLEN'S TEST Positive; FCOHb 0.3 % (0.5-1.5); FLOW 12 L/min; FO2Hb 98.6 % (94-100); RESPIRATORY RATE (OBSERVED) 50 b/min; TOTAL HEMOGLOBIN 11.2 G/dl (14.0-18.0)
[2017-05-11] MEDS: midazolam 100mg in NS 100ml 100 ML IV PRN (15:12)
== END 2017-05-11 16:32 | disposition expired | DRG 246 ==
LOC: ER 14:44 → CICU 2S 17:00 → ICU 2S 05-08 09:50
PROVIDERS: ADMIT Internal Medicine Critical Care Medicine; ATTEND Internal Medicine Critical Care Medicine
PROC: 5A1955Z Respiratory Ventilation, Greater than 96 Consecutive Hours (ICD-10-PCS; principal; 2017-05-06)
PROC: 027034Z Dilation of Coronary Artery, One Artery with Drug-eluting Intraluminal Device, Percutaneous Approach (ICD-10-PCS; 2017-05-06)
PROC: 5A12012 Performance of Cardiac Output, Single, Manual (ICD-10-PCS; 2017-05-06)
PROC: 0BH17EZ Insertion of Endotracheal Airway into Trachea, Via Natural or Artificial Opening (ICD-10-PCS; 2017-05-06)
PROC: 4A023N7 Measurement of Cardiac Sampling and Pressure, Left Heart, Percutaneous Approach (ICD-10-PCS; 2017-05-06)
PROC: B2111ZZ Fluoroscopy of Multiple Coronary Arteries using Low Osmolar Contrast (ICD-10-PCS; 2017-05-06)
PROC: B2151ZZ Fluoroscopy of Left Heart using Low Osmolar Contrast (ICD-10-PCS; 2017-05-06)
PROC: B2131ZZ Fluoroscopy of Multiple Coronary Artery Bypass Grafts using Low Osmolar Contrast (ICD-10-PCS; 2017-05-06)
PROC: 02HV33Z Insertion of Infusion Device into Superior Vena Cava, Percutaneous Approach (ICD-10-PCS; 2017-05-06)
PROC: 04HY32Z Insertion of Monitoring Device into Lower Artery, Percutaneous Approach (ICD-10-PCS; 2017-05-06)
PROC: 4A133B1 Monitoring of Arterial Pressure, Peripheral, Percutaneous Approach (ICD-10-PCS; 2017-05-06)
PROC: 4A133J1 Monitoring of Arterial Pulse, Peripheral, Percutaneous Approach (ICD-10-PCS; 2017-05-06)
DX: I21.4 Non-ST elevation (NSTEMI) myocardial infarction (principal); J96.00 Acute respiratory failure, unspecified whether with hypoxia or hypercapnia; I46.9 Cardiac arrest, cause unspecified; G93.1 Anoxic brain damage, not elsewhere classified; I13.2 Hypertensive heart and chronic kidney disease with heart failure and with stage 5 chronic kidney disease, or end stage renal disease; E83.51 Hypocalcemia; I42.9 Cardiomyopathy, unspecified; N18.6 End stage renal disease; I50.22 Chronic systolic (congestive) heart failure; N17.9 Acute kidney failure, unspecified; N18.3 Chronic kidney disease, stage 3 (moderate); E87.5 Hyperkalemia; I25.10 Atherosclerotic heart disease of native coronary artery without angina pectoris; D64.9 Anemia, unspecified; Z51.5 Encounter for palliative care; E11.22 Type 2 diabetes mellitus with diabetic chronic kidney disease; E78.5 Hyperlipidemia, unspecified; I25.2 Old myocardial infarction; Z79.84 Long term (current) use of oral hypoglycemic drugs; Z95.1 Presence of aortocoronary bypass graft; Z95.5 Presence of coronary angioplasty implant and graft; Z99.2 Dependence on renal dialysis; Z79.4 Long term (current) use of insulin
CPT/HCPCS: 93306; 93459; 99291; C9606; 36415; 36600; 70551; 71045; 80048; 80053; 80061; 82330; 82550; 82803; 82810; 82948; 83036; 83605; 83735; 83880; 84100; 84134; 84484; 85018; 85025; 85347; 85610; 85730; 86885; 86900; 86901; 87070; 93005; 94002; 94003; 94760; A4620; A6213; A6255; A6257; A6258; A6449; C1725; C1769; C1874; C9113; J0171; J0360; J1265; J1644; J1815; J1940; J2001; J2250; J2270; J2405; J3010; J3246; J3490; J7030; Q9967